=== PATIENT | female | born 1960 | race Caucasian/White ===

== ENCOUNTER 2022-12-13 10:16 | Day surgery (SDC) | payer BC ==
[2022-12-10 12:02] VITALS: BMI 33.9
[2022-12-13 10:38] VITALS: RESP 16
[2022-12-13 12:24] VITALS: TEMP 97
[2022-12-13 12:40] VITALS: BP 127/75; PULSE 84
== END 2022-12-13 12:49 | disposition home or self-care (01) ==
LOC: FASU-ENDO 10:16
PROVIDERS: ATTEND Internal Medicine Gastroenterology
PROC: 0DBN8ZX Excision of Sigmoid Colon, Via Natural or Artificial Opening Endoscopic, Diagnostic (ICD-10-PCS; 2022-12-13)
PROC: 0DBL8ZX Excision of Transverse Colon, Via Natural or Artificial Opening Endoscopic, Diagnostic (ICD-10-PCS; principal; 2022-12-13 11:46)
DX: Z12.11 Encounter for screening for malignant neoplasm of colon (principal); D12.3 Benign neoplasm of transverse colon; K63.5 Polyp of colon; K57.30 Diverticulosis of large intestine without perforation or abscess without bleeding; K64.1 Second degree hemorrhoids; K64.8 Other hemorrhoids
CPT/HCPCS: 88305-TC